=== PATIENT | female | born 1995 | race Caucasian/White ===

== ENCOUNTER 2016-12-06 14:05 | Emergency (ER) | payer OTHER ==
[~2016-12-06] VITALS: Wt 69.0 kg
[2016-12-06] MEDS ORDERED: ACETAMINOPHEN 325 MG TAB PO STA (15:10)
--- NOTE | 2016-12-06 15:36 | RADRPT ---
PROCEDURE: US OB. CLINICAL INDICATION: Pelvic pain TECHNIQUE: Transabdominal views of the pelvis are available for review. COMPARISON: No prior studies are available for comparison. FINDINGS: There is a single intrauterine gestation with the crown-rump length measuring 1.3 cm, corresponding to a gestational age of 7 weeks and 3 days. The heart rate is noted at 156 bpm. The right ovary measures 2.4 x 1.6 x 1.6 cm. The left ovary was not visualized. There is no free fluid. RPTAT: AA IMPRESSION: Single live intrauterine with an estimated gestational age of 7 weeks and 3 days, based on ultrasound measurements. OSORIO based on ultrasound measurements is 07/22/17. .Javier Suárez MD, MD Date Time Electronically viewed and signed by .Javier Suárez MD, MD on 12/06/2016 15:36 .S/
[2016-12-06 15:49] LABS: ADD SCAN DIFF NO
[2016-12-06 15:51] LABS: BASOPHILS % 0.3 % (0.0-2.0); EOSINOPHILS # 0.2 10^3/ul (0.0-0.5); EOSINOPHILS % 1.8 % (0.0-7.0); HEMATOCRIT 41.3 % (37.0-47.0); HEMOGLOBIN 13.9 g/dl (12.0-16.0); LYMPHOCYTES # 2.9 10^3/ul (0.8-2.9); LYMPHOCYTES % 29.4 % (15.0-51.0); MEAN CORPUSCULAR HEMOGLOBIN 28.8 pg (29.0-33.0); MEAN CORPUSCULAR HGB CONC 33.7 g/dl (32.0-37.0); MEAN CORPUSCULAR VOLUME 85.7 fl (82.0-101.0); MEAN PLATELET VOLUME 10.2 fl (7.4-10.4); MONOCYTE # 0.5 10^3/ul (0.3-0.9); MONOCYTES % 4.8 % (0.0-11.0); NEUTROPHIL # 6.2 10^3/ul (1.6-7.5); NEUTROPHILS % 63.4 % (39.0-77.0); PLATELET COUNT 265 10^3/UL (140-415); RED BLOOD COUNT 4.82 10^6/ul (4.20-5.40); RED CELL DISTRIBUTION WIDTH 12.3 % (11.5-14.5); WHITE BLOOD COUNT 9.7 10^3/ul (4.8-10.8)
[2016-12-06 15:59] LABS: ADD UMIC YES; URINE BILIRUBIN (Dip) NEGATIVE (NEGATIVE); URINE BLOOD (Dip) TRACE (NEGATIVE); URINE COLOR LT. YELLOW (YELLOW); URINE GLUCOSE (Dip) NEGATIVE (NEGATIVE); URINE KETONES (Dip) NEGATIVE (NEGATIVE); URINE LEUKOCYTE ESTERASE (Dip) TRACE (NEGATIVE); URINE NITRITE (Dip) NEGATIVE (NEGATIVE); URINE TOTAL PROTEIN (Dip) NEGATIVE (NEGATIVE); URINE UROBILINOGEN (Dip) 0.2 E.U./dL (0.1-1.0)
[2016-12-06 16:21] LABS: SQUAMOUS EPITHELIAL CELL,UR MODERATE; URINE RBCS 0-2 /HPF (0)
[2016-12-06] MEDS ORDERED: CEPHALEXIN 500 MG CAP PO ONE (16:30)
[2016-12-06] MEDS ORDERED: CEPH-443 PO (16:33)
[2016-12-06] MEDS ORDERED: ACET500C5 PO (16:33)
--- NOTE | 2016-12-06 16:36 | ERD ---
ER Documentation Chief Complaint Date/Time DATE: 12/06/16 TIME: 16:34 Chief Complaint 8 WEEK PREG WITH PELVIC PAIN AND VB HPI This 21-year-old female presents with some suprapubic abdominal pain since this morning. She is approximately 8 weeks by dates. She denies any right- sided abdominal pain, vaginal bleeding, urinary complaints. She denies any fevers or vomiting. She is a G2 para 1 and has not had her first visit yet but does have a scheduled appointment. ROS All systems reviewed and are negative except as per history of present illness. Medications Home Meds Active Scripts Cephalexin* (Keflex*) 500 Mg Capsule, 500 MG PO QID for 5 Days, CAP Prov:DEVENDRA DANIEL MD 12/06/16 Acetaminophen* (Tylophen*) 500 Mg Capsule, 1 CAP PO Q6H Y for PAIN AND OR ELEVATED TEMP, #15 CAP Prov:DEVENDRA DANIEL MD 12/06/16 Allergies Allergies: Coded Allergies: No Known Allergy (Unverified , 12/06/16) PMhx/Soc Medical and Surgical Hx: pt denies Medical Hx, pt denies Surgical Hx Hx Alcohol Use: No Hx Substance Use: No Hx Tobacco Use: No Smoking Status: Never smoker Physical Exam Vitals Vital Signs Date Time Temp Pulse Resp B/P Pulse Ox O2 Delivery O2 Flow Rate FiO2 12/06/16 14:22 98.0 64 18 116/68 99 Physical Exam Const: [] Alert, [id number]. Head: Atraumatic Eyes: Normal Conjunctiva ENT: Normal External Ears, Nose and Mouth. Neck: Full range of motion..~ No meningismus. Resp: Clear to auscultation bilaterally Cardio: Regular rate and rhythm, no murmurs Abd: Soft, minimal tenderness in the suprapubic area. No tenderness at McBurney's point no Gordillo sign., non distended. Normal bowel sounds Skin: No petechiae or rashes Back: No midline or flank tenderness Ext: No cyanosis, or edema Neur: Awake and alert Psych: Normal Mood and Affect Result Diagram: 12/06/16 1520 Results 24 hrs Laboratory Tests Test 12/06/16 15:10 12/06/16 15:20 Urine Color LT. YELLOW Urine Clarity SLIGHTLY CLOUDY Urine pH 8.0 Urine Specific [place] 1.015 Urine Ketones NEGATIVE Urine Nitrite NEGATIVE Urine Bilirubin NEGATIVE Urine Urobilinogen 0.2 E.U./dL Urine Leukocyte Esterase TRACE Urine Microscopic RBC 0-2/HPF Urine Microscopic WBC 0-2/HPF Urine Squamous Epithelial Cells MODERATE Urine Amorphous Urates MODERATE Urine Hemoglobin TRACE Urine Glucose NEGATIVE% Urine Total Protein NEGATIVE White Blood Count 9.710^3/ul Red Blood Count 4.8210^6/ul Hemoglobin 13.9g/dl Hematocrit 41.3% Mean Corpuscular Volume 85.7fl Mean Corpuscular Hemoglobin 28.8pg Mean Corpuscular Hemoglobin Concent 33.7g/dl Red Cell Distribution Width 12.3% Platelet Count 16588^3/UL Mean Platelet Volume 10.2fl Neutrophils % 63.4% Lymphocytes % 29.4% Monocytes % 4.8% Eosinophils % 1.8% Basophils % 0.3% Nucleated Red Blood Cells % 0.0/100WBC Neutrophils # 6.210^3/ul Lymphocytes # 2.910^3/ul Monocytes # 0.510^3/ul Eosinophils # 0.210^3/ul Basophils # 0.010^3/ul Nucleated Red Blood Cells # 0.010^3/ul Current Medications Medications (Trade) Dose Ordered Sig/Daly Route PRN Reason Start Time Stop Time Status Last Admin Dose Admin Acetaminophen (Tylenol Tab) 650 mg ONCE STAT PO 12/06/16 15:10 12/06/16 15:11 DC 12/06/16 15:34 Cephalexin (Keflex) 500 mg ONCE ONCE PO 12/06/16 16:30 12/06/16 16:31 DC 12/06/16 16:24 Procedures/MDM Urine shows trace leukocytes few WBCs. Pelvic ultrasound shows intrauterine approximately 7 weeks with a heart rate of 150. Is no evidence of adnexal or acute complications. Patient was given Tylenol 500 mg by mouth and Keflex 500 mg by mouth. Patient has suprapubic abdominal pain of early of uncertain etiology. She has some mild signs of UTI will be treated for this. There is no current evidence to suggest appendicitis, ectopic , acute abdomen. Patient should recheck in the next day for bleeding, vomiting, worsening pain, new worsening symptoms otherwise with OB as scheduled. The patient was stable with no new complaints during the ER course. Clinically, there is no current evidence to suggest meningitis, sepsis, acute abdomen, pneumonia, acute coronary syndrome, pulmonary embolism, or any other emergent condition appearing to require further evaluation or hospitalization. The patient should certainly return for any new or worsening symptoms per the aftercare instructions. They should otherwise follow-up with her primary care doctor for reevaluation this week. Departure Diagnosis: Primary Impression: Pelvic pain complicating Condition: Stable Patient Instructions: Abdominal Pain, Early Additional Instructions: Urine shows possible infection. Ultrasound shows normal 7 week intrauterine . Recheck with OB as scheduled. return for bleeding, worsening pain, new worsening symptoms with DEVENDRA DANIEL MD Dec 06, 2016 16:36
== END 2016-12-06 17:00 | disposition home or self-care (01) ==
LOC: FTE 14:05
DX: O26.891 Other specified pregnancy related conditions, first trimester (principal); R10.2 Pelvic and perineal pain; Z3A.01 Less than 8 weeks gestation of pregnancy
CPT/HCPCS: 36415; 76801; 81001; 84702; 85025; 86900; 86901; Z7502; Z7610; 81003